=== PATIENT | male | born 1935 | race Caucasian/White ===

== ENCOUNTER → 2019-11-29 | Outpatient (CLI) | payer MEDICARE, SELFPAY ==
[2019-11-29 15:39] LABS: Cholesterol 153 mg/dL (200); High Density Lipoprotein 42 mg/dL; Triglycerides 171 mg/dL; Very Low Density Lipoprotein 34 mg/dL (5-40)
[2019-11-29 15:42] LABS: Hemoglobin A1c 6.6 % (3.8-5.6)
== END | disposition home or self-care (01) ==
LOC: LABSPEC 14:05
PROVIDERS: PCP Family Medicine; Visit Provider Family Medicine
DX: I10 Essential (primary) hypertension (principal); R73.09 Other abnormal glucose; Z76.89 Persons encountering health services in other specified circumstances
CPT/HCPCS: 80061; 83036